=== PATIENT | male | born 1950 | race Caucasian/White ===

== ENCOUNTER 2022-09-24 11:53 | Outpatient (CLI) | payer OTHER | END 2022-09-24 11:54 | disposition home or self-care (01) | LOC: CSHRAD 11:53 | PROVIDERS: ATTEND Surgery | DX: S12.110A Anterior displaced Type II dens fracture, initial encounter for closed fracture (principal); S12.9XXA Fracture of neck, unspecified, initial encounter; S12.100D Unspecified displaced fracture of second cervical vertebra, subsequent encounter for fracture with routine healing; S12.600D Unspecified displaced fracture of seventh cervical vertebra, subsequent encounter for fracture with routine healing | CPT/HCPCS: 72050 ==

== ENCOUNTER 2022-10-21 14:47 | Outpatient (CLI) | payer OTHER | END 2022-10-21 14:48 | disposition home or self-care (01) | LOC: CSHRAD 14:47 | PROVIDERS: ATTEND Family Medicine | DX: S12.6 Fracture of seventh cervical vertebra (principal); S12.100D Unspecified displaced fracture of second cervical vertebra, subsequent encounter for fracture with routine healing; S12.690D Other displaced fracture of seventh cervical vertebra, subsequent encounter for fracture with routine healing | CPT/HCPCS: 72050 ==